=== PATIENT | female | born 1980 | race Caucasian/White ===

== ENCOUNTER → 2020-10-15 | Outpatient (CLI) | payer OTHER, SELFPAY | LOC: EXRD 10-11 10:30 → KOH-I 10:05 | DX: R10.2 Pelvic and perineal pain (principal); R10.813 Right lower quadrant abdominal tenderness | CPT/HCPCS: 36415; 76700; 80053; 82150; 83690; 85027 ==

== ENCOUNTER → 2020-10-15 | Outpatient (CLI) | payer OTHER ==
[2020-10-15 12:22] LABS: HEMOGLOBIN 13.8 gm/dl (12.3-15.3); RED BLOOD COUNT 4.56 M/UL (4.00-5.10); WHITE BLOOD COUNT 4.4 K/UL (4.5-11.0)
[2020-10-15 13:01] LABS: BUN/CREATININE RATIO 7 (0-10)
== END ==
LOC: LAB 11:40
PROVIDERS: Family Medicine
DX: R10.2 Pelvic and perineal pain (principal); R10.813 Right lower quadrant abdominal tenderness
CPT/HCPCS: 36415; 80053; 82150; 83690; 85027

== ENCOUNTER → 2020-11-14 | Outpatient (CLI) | payer OTHER ==
[2020-11-14 14:43] LABS: HEMOGLOBIN 13.9 gm/dl (12.3-15.3); RED BLOOD COUNT 4.5 M/UL (4.00-5.10); WHITE BLOOD COUNT 7.4 K/UL (4.5-11.0)
[2020-11-14 15:15] LABS: BUN/CREATININE RATIO 13 (0-10)
== END ==
LOC: LAB 13:50
PROVIDERS: Nurse Practitioner Family
DX: D64.9 Anemia, unspecified (principal); G47.00 Insomnia, unspecified; M62.838 Other muscle spasm
CPT/HCPCS: 36415; 80053; 82550; 82728; 83540; 83550; 83735; 84443; 85025; 85652

== ENCOUNTER 2020-11-16 05:39 | Emergency (ER) | payer OTHER ==
[2020-11-16 06:40] LABS: HEMOGLOBIN 13.9 gm/dl (12.3-15.3); RED BLOOD COUNT 4.5 M/UL (4.00-5.10)
[2020-11-16 06:43] LABS: WHITE BLOOD COUNT 4.5 K/UL (4.5-11.0)
[2020-11-16 07:10] LABS: BUN/CREATININE RATIO 10 (0-10)
== END 2020-11-16 09:33 | disposition home or self-care (01) ==
LOC: ER1 05:39
PROVIDERS: Family Medicine
DX: G47.00 Insomnia, unspecified (principal)
CPT/HCPCS: 80053; 80307; 81001; 84439; 84443; 85025; 99284; G0480

== ENCOUNTER 2021-04-24 17:14 | Emergency (ER) | payer OTHER ==
[2021-04-24 18:27] LABS: RED BLOOD COUNT 4.47 M/UL (4.00-5.10); WHITE BLOOD COUNT 5.7 K/UL (4.5-11.0)
[2021-04-24 18:33] LABS: BUN/CREATININE RATIO 9 (0-10)
[2021-04-24] MEDS ORDERED: BENTYL 10MG CAP10 MG PO (23:15)
== END 2021-04-24 23:31 | disposition home or self-care (01) ==
LOC: ER1 17:14
PROVIDERS: Physician Assistant Medical
DX: R10.9 Unspecified abdominal pain (principal)
CPT/HCPCS: 74018; 80053; 81001; 83690; 84703; 85025; 99284; Q9967

== ENCOUNTER → 2021-09-25 | Outpatient (CLI) | payer OTHER ==
[~2021-09-25] MED LIST: BENTYL 10MG CAP10 MG PO
[2021-09-25 09:24] LABS: HEMOGLOBIN 14.1 gm/dl (12.3-15.3); RED BLOOD COUNT 4.58 M/UL (4.00-5.10); WHITE BLOOD COUNT 4.8 K/UL (4.5-11.0)
[2021-09-25 09:58] LABS: BUN/CREATININE RATIO 18 (0-10)
== END ==
LOC: LAB 08:46
PROVIDERS: Family Medicine
DX: R53.83 Other fatigue (principal); M10.9 Gout, unspecified; Z91.048 Other nonmedicinal substance allergy status
CPT/HCPCS: 36415; 80053; 80061; 82607; 82728; 82746; 83540; 83550; 84439; 84443; 84550; 85027